=== PATIENT | female | born 1955 | race Caucasian/White ===

== ENCOUNTER → 2017-02-18 | Outpatient (CLI) | payer BC ==
--- NOTE | 2017-02-18 15:38 | Diagnostic Imaging Report ---
EXAM: Bilateral diagnostic mammogram. The current study was also evaluated with a Computer Aided Detection (CAD) system. Tomography evaluation is also performed. COMPARISON: No prior studies are available for comparison. INDICATION: Breast mass in the left side. FINDINGS: There is a spiculated suspicious mass measuring about 3 cm seen in the upper central aspect of the left breast. There are suspicious calcifications also associated with it. The right breast demonstrates heterogeneously dense parenchyma with benign-appearing calcifications. IMPRESSION: A 3 cm spiculated mass with concerning calcifications in the central upper aspect of the left breast almost certainly related to breast cancer. Ultrasound evaluation is pending. BI-RADS 0. Dictated by: Dictated on workstation # [id number]
--- NOTE | 2017-02-18 16:28 | Diagnostic Imaging Report ---
EXAMINATION: Left breast ultrasound. INDICATION: Palpable mass. FINDINGS: At the 12 o'clock zone in the periareolar region centered at about 2 cm from the nipple, there is a suspicious irregular mass with associated minimal shadowing and internal vascularity measuring 4.5 x 3.3 x 3.2 cm, highly suggestive of breast cancer. There is an enlarged lymph node in the left axilla measuring 2.3 cm, concerning for lymph node spread of the malignancy. No other suspicious nodules are seen in the breast 4 quadrants or retroareolar region. IMPRESSION: There is a 4.5 cm irregular mass at the 12 o'clock zone 2 cm from the nipple. There is also a mildly enlarged lymph node in the left axilla. The findings are compatible with breast cancer with axillary jewels involvement. An ultrasound-guided biopsy of the breast mass and the lymph node is recommended. The findings were called to Dr. Owen at the time of dictation. ACR BI-RADS Category 5: Highly suggestive of malignancy. Dictated by: Dictated on workstation # [id number]
== END ==
LOC: RAD 15:01
PROVIDERS: ATTEND Obstetrics & Gynecology
DX: N63.20 Unspecified lump in the left breast, unspecified quadrant (principal); R59.0 Localized enlarged lymph nodes
CPT/HCPCS: 76641; 77066

== ENCOUNTER → 2017-02-19 | Outpatient (CLI) | payer BC ==
[~2017-02-19] VITALS: Ht 175.3 cm; Wt 81.6 kg
[~2017-02-19] MED LIST: LIDOCAINE 1% INJ 20 ML (XYLOCAINE) VIAL INJ ONE; LIDOCAINE 1% INJ 20 ML (XYLOCAINE) VIAL ONE
[2017-02-19 08:36] VITALS: BP 132/80
[2017-02-19 09:45] VITALS: BP 128/74
--- NOTE | 2017-02-19 11:37 | Diagnostic Imaging Report ---
EXAMINATION: Ultrasound-guided biopsy of a left axilla mass. A metallic clip placed to rika biopsy site. INDICATION: Left axilla mass. CONSENT: Informed consent was obtained from the patient. The risks, benefits, potential complications and alternatives were reviewed and all questions answered to the patient's satisfaction. FINDINGS: Ultrasound images demonstrate a left axilla enlarged lymph node. PROCEDURE: After sterile preparation and draping, 1% lidocaine was utilized for local anesthesia. A 13-gauge guide needle was introduced under live ultrasound guidance to the level of the lesion. Good needle position was documented with ultrasound images. 14-gauge biopsy needle was utilized and core biopsies were performed. Multiple samples were obtained and sent to pathology. A metallic clip was placed to rika the site of the biopsy. A subsequent mammogram is performed and confirms the proper positioning of the clip. The axillary lymph node however is outside the [id number] on the mammogram. The patient tolerated the procedure well with no immediate complications. IMPRESSION: Successful ultrasound-guided core biopsy of left axilla enlarged lymph node. Dictated by: Dictated on workstation # [id number]
--- NOTE | 2017-02-19 11:38 | Diagnostic Imaging Report ---
EXAMINATION: Ultrasound-guided biopsy of a breast mass. A metallic clip placed to rika biopsy site. INDICATION: Left breast mass. CONSENT: Informed consent was obtained from the patient. The risks, benefits, potential complications and alternatives were reviewed and all questions answered to the patient's satisfaction. FINDINGS: Ultrasound images demonstrate a left breast mass. PROCEDURE: After sterile preparation and draping, 1% lidocaine was utilized for local anesthesia. A 13-gauge guide needle was introduced under live ultrasound guidance to the level of the lesion. Good needle position was documented with ultrasound images. 14-gauge biopsy needle was utilized and core biopsies were performed. Multiple samples were obtained and sent to pathology. A metallic clip was placed to rika the site of the biopsy. A subsequent mammogram is performed and confirms the proper positioning of the clip. The patient tolerated the procedure well with no immediate complications. IMPRESSION: Successful ultrasound-guided core biopsy of 12:00 left breast mass. Dictated by: Dictated on workstation # [id number]
--- NOTE | 2017-02-19 12:27 | Diagnostic Imaging Report ---
EXAMINATION: Left breast diagnostic mammogram with CC and lateral projections performed. INDICATION: Documentation for clip position after ultrasound-guided biopsy. There is a clip seen in the left breast mass along its central to medial aspect of the left breast mass. The axillary large lymph nodes seen by ultrasound is not visible on mammography. IMPRESSION: Satisfactory position of marking clip after ultrasound-guided biopsy within the medial aspect of a left breast mass. The pathology results are pending BI-RADS 5. ACR BI-RADS Category 5: Highly suggestive of malignancy. Result letter will be mailed to the patient. Note: At least 10% of breast cancer is not imaged by mammography. Dictated by: Dictated on workstation # [id number]
== END ==
LOC: RAD 07:51
PROVIDERS: ATTEND Obstetrics & Gynecology
DX: N63.20 Unspecified lump in the left breast, unspecified quadrant (principal); N63.32 Unspecified lump in axillary tail of the left breast
CPT/HCPCS: 19083; 19084